=== PATIENT | male | born 1990 | race Caucasian/White ===

== ENCOUNTER 2019-04-20 03:30 | Emergency (ER) | payer BC ==
[2019-04-20] MEDS ORDERED: Dexamethasone 10 MG/ML SDV IM ONE (05:14)
--- NOTE | 2019-04-20 05:36 | EDM.PDOC ---
ED HPI GENERAL MEDICAL PROBLEM - General Chief Complaint: ENT Problem Stated Complaint: PER PT. UNDER HIS LT JAW IS HURTING Time Seen by Provider: 04/20/19 04:52 - History of Present Illness INITIAL COMMENTS - FREE TEXT/NARRATIVE: Pt with no reported pmh presents with swelling under his chin since 6pm 04/20. The nodular swelling first began on the left and moved to the right while at work. In the day prior to this, the pt reports mild sore throat, nasal congestion, and nonproductive cough. Pt denies dental pain, difficulty swallowing or breathing or any other symptoms. throat Pain Score (Numeric/FACES): 3 - Related Data Allergies Allergy/AdvReac Type Severity Reaction Status Date / Time acetaminophen Allergy Hives Verified 04/20/19 04:20 Home Meds: Home Meds Albuterol [Proventil HFA] 2 puff INH Q4H PRN 04/20/19 [History] Fluticasone/Vilanterol [Breo Ellipta 100-25 MCG Inhalation Kit] 1 puff INH DAILY 04/20/19 [History] Past Medical History Respiratory History: Reports: Asthma Endocrine/Metabolic History: Reports: Obesity/BMI 30+ - Past Surgical History Respiratory Surgical History: Reports: None Endocrine Surgical History: Reports: None Social & Family History - Family History Family Medical History: Noncontributory - Tobacco Use Smoking Status *Q: Never Smoker Second Hand Smoke Exposure: No - Caffeine Use Caffeine Use: Reports: Soda - Recreational Drug Use Recreational Drug Use: No ED ROS ENT - Review of Systems Review Of Systems: See Below Constitutional: Reports: No Symptoms HEENT: Reports: Rhinitis, Throat Pain. Denies: Throat Swelling Respiratory: Reports: Cough Cardiovascular: Reports: No Symptoms GI/Abdominal: Reports: No Symptoms Skin: Reports: No Symptoms Hematologic/Lymphatic: Reports: Swollen Glands ED EXAM, ENT - Physical Exam Exam: See Below General Appearance: Alert, WD/WN, No Apparent Distress Ears: Normal External Exam Nose: Normal Inspection Mouth/Throat: Normal Gums, Normal Teeth, Pharyngeal Erythema, Tonsillar Erythema. No: Drooling, Gum Swelling, Hoarse Voice, Lip Swelling, Tonsillar Exudates, Tonsillar Swelling, Trismus Head: Atraumatic, Normocephalic Neck: Lymphadenopathy (L), Lymphadenopathy (R), Other (Bilateral submandibular LAD. Nodes soft, nontender and mobile. No sublingual edema, air way and oropharynx normal) Respiratory/Chest: No Respiratory Distress, Lungs Clear, Normal Breath Sounds Cardiovascular: Regular Rate, Rhythm, No Murmur GI/Abdominal: Soft, Non-Tender, No Distention Extremities: Normal Inspection Neurological: Alert, Oriented, Normal Cognition Skin: Warm, Dry, Intact Course - Vital Signs Last Recorded V/S: Last Vital Signs Temp 96.4 F 04/20/19 04:08 Pulse 108 H 04/20/19 05:18 Resp 20 04/20/19 05:18 BP 166/105 H 04/20/19 05:18 Pulse Ox 96 04/20/19 05:18 - Orders/Labs/Meds Meds: Medications Discontinued Medications Generic Name Dose Route Start Last Admin Trade Name Symone PRN Reason Stop Dose Admin Dexamethasone 12 mg 04/20/19 05:14 04/20/19 05:42 Dexamethasone IM 04/20/19 05:15 12 mg ONETIME ONE Administration - Re-Assessments/Exams Free Text/Narrative Re-Assessment/Exam: Pt who is otherwise healthy with no PMH presents with one night of what appears to be bilateral submandibular lymphadenopathy. Pt reports preceding URI symptoms and initial unilateral left lymphadenopathy. VS clinically unremarkable and PE benign with nonproductive cough, oropharyngeal irritation and bilateral submandibular lymphadenopathy. Strep swab negative. Symptoms likely reactive due to viral URI. Decadron given for symptom control. Pt strongly advised to follow up with primary care for monitoring of this lymphadenopathy to rule out malignancy. Pt will follow up and is comfortable with discharge. Strict return precautions discussed should symptoms worsen or any concerns arise. Departure - Departure Time of Disposition: 05:55 Disposition: Home, Self-Care 01 Condition: Good Clinical Impression: Submandibular lymphadenopathy - Discharge Information *PRESCRIPTION DRUG MONITORING PROGRAM REVIEWED*: Not Applicable *COPY OF PRESCRIPTION DRUG MONITORING REPORT IN PATIENT BOZENA: Not Applicable Instructions: Lymphadenopathy Referrals: Tony Benedict MD [Primary Care Provider] - Forms: ED Department Discharge Sepsis Event Note - Evaluation Sepsis Screening Result: No Definite Risk - Focused Exam Date Exam was Performed: 04/21/19 Time Exam was Performed: 09:03
== END 2019-04-20 06:04 | disposition home or self-care (01) ==
LOC: MW.ED 03:30
DX: R59.0 Localized enlarged lymph nodes (principal); E66.9 Obesity, unspecified; J45.909 Unspecified asthma, uncomplicated; Z79.899 Other long term (current) drug therapy
CPT/HCPCS: 87081; 87880; 96372; 99283; J1100

== ENCOUNTER 2021-02-03 02:24 | Emergency (ER) | payer BC ==
--- NOTE | 2021-02-03 02:42 | EDM.PDOC ---
ED HPI GENERAL MEDICAL PROBLEM - General Chief Complaint: General Stated Complaint: MEDICAL CLEARANCE Time Seen by Provider: 02/03/21 02:40 - History of Present Illness INITIAL COMMENTS - FREE TEXT/NARRATIVE: CHIEF COMPLAINT(S): Medical Clearance HISTORY OF PRESENT ILLNESS: This is a 30-year-old man without any significant past medical history who comes to the emergency department with a chief complaint of Medical Clearance. The patient states that they have no symptoms and are here for medical clearance. The patient states that they are feeling well and they deny chest pain, shortness of breath, abdominal pain, nausea or vomiting. Headache, blurry vision, loss of vision, numbness, tingling, weakness. Use of anticoagulation. Head injury. REVIEW OF SYSTEMS: Constitutional: Denies fever, chills. Eyes: Denies eye pain Ears, Nose, Mouth, & Throat: Denies earache Cardiovascular: Denies chest pain Respiratory: Denies shortness of breath Gastrointestinal: Denies Nausea, vomiting, diarrhea, hematochezia. Genitourinary: Denies hematuria Skin:Denies a rash MSK: Denies joint pain Neurological: Denies blurred vision Psychiatric: Denies depression PAST MEDICAL HISTORY: As per history of present illness and as reviewed below otherwise noncontributory. SURGICAL HISTORY: As per history of present illness and as reviewed below otherwise noncontributory. SOCIAL HISTORY: As per history of present illness and as reviewed below otherwise noncontributory. FAMILY HISTORY: As per history of present illness and as reviewed below otherwise noncontributory. EXAMINATION OF ORGAN SYSTEMS/BODY AREAS: Constitutional: Blood pressure is 166/96, heart rate 116, respiratory rate 18 with an oxygen saturation of 97% on room air. Temperature 36.0 General: Well-appearing man who is in no acute distress Psychiatric: Appropriate mood and affect. Eyes: No scleral icterus or conjunctival erythema ENMT: Moist mucous membranes. No pharyngeal erythema Cardiovascular: Regular, rate, and rhythm. No gallops, murmurs, or rubs. Bilateral upper extremity pulses symmetric and intact. No peripheral edema. No JVD. Respiratory: Lungs clear to auscultation bilaterally. No wheezes, rales, or rhonchi. Gastrointestinal: Soft, non-tender, non-distended. Normoactive bowel sounds Genitourinary: No suprapubic tenderness Musculoskeletal: Normal range of motion. Skin: No lesions or abrasions. Neurological: Alert, GCS 15 MEDICAL DECISION MAKING AND COURSE IN THE ED WITH INTERPRETATION/REVIEW OF DIAGNOSTIC STUDIES: This is a 30-year-old man without any significant past medical history who comes to the emergency department for a medical clearance. The patient is currently asymptomatic without any complaints. At this time, I do not believe any further workup is indicated, therefore the patient was discharged in custody. The medical clearance form was completed and they were instructed to come to the ED for any new or concerning symptoms. The patient expressed understanding and was amenable to discharge at this time. DISPOSITION: The patient was discharged in police custody in stable condition. CONDITION: Good PROCEDURES: None FINAL IMPRESSION(S)/DIAGNOSES: 1. Acute encounter for medical screening examination Saman Ho M.D. - Related Data Allergies Allergy/AdvReac Type Severity Reaction Status Date / Time acetaminophen Allergy Hives Verified 02/03/21 02:43 Home Meds: Home Meds Albuterol [Proventil HFA] 2 puff INH Q4H PRN 04/20/19 [History] Fluticasone/Vilanterol [Breo Ellipta 100-25 MCG Inhalation Kit] 1 puff INH DAILY 04/20/19 [History] Past Medical History Respiratory History: Reports: Asthma Endocrine/Metabolic History: Reports: Obesity/BMI 30+ - Past Surgical History Respiratory Surgical History: Reports: None Endocrine Surgical History: Reports: None Social & Family History - Family History Family Medical History: No Pertinent Family History - Caffeine Use Caffeine Use: Reports: Soda ED ROS GENERAL - Review of Systems Review Of Systems: See Below ED EXAM, GENERAL - Physical Exam Exam: See Below Course - Vital Signs Last Recorded V/S: Last Vital Signs Temp 36 C L 02/03/21 02:44 Pulse 116 H 02/03/21 02:44 Resp 18 02/03/21 02:44 BP 166/96 H 02/03/21 02:44 Pulse Ox 97 02/03/21 02:44 Departure - Departure Time of Disposition: 02:41 Disposition: Home, Self-Care 01 Condition: Good Clinical Impression: Encounter for medical screening examination - Discharge Information *PRESCRIPTION DRUG MONITORING PROGRAM REVIEWED*: No *COPY OF PRESCRIPTION DRUG MONITORING REPORT IN PATIENT BOZENA: No Instructions: Medical Screening Exam Referrals: PCP,None [Primary Care Provider] - Forms: ED Department Discharge Additional Instructions: You were evaluated today on an emergent basis. At this time no further work-up is indicated. I recommend that she follow-up with primary care physician as needed. If you have any concerning symptoms please return to the emergency department. [facility] [address] [place] [address] [facility] [address] [place] [id number] The patient is informed of any results of their evaluation and diagnostic workup and all questions are answered. They are given discharge instructions and return precautions. The patient is stable for discharge. The patient states they understand and agree with the plan and that they will return if their symptoms get worse or if they have any new concerns. The following information is given to patients seen in the emergency department who are being discharged to home. This information is to outline your options for follow-up care. We provide all patients seen in our emergency department with a follow-up referral. The need for follow-up, as well as the timing and circumstances, are variable depending upon the specifics of your emergency department visit. If you don't have a primary care physician on staff, we will provide you with a referral. We always advise you to contact your personal physician following an emergency department visit to inform them of the circumstance of the visit and for follow-up with them and/or the need for any referrals to a consulting specialist. The emergency department will also refer you to a specialist when appropriate. This referral assures that you have the opportunity for follow-up care with a specialist. All of these measure are taken in an effort to provide you with optimal care, which includes your follow-up. Under all circumstances we always encourage you to contact your private physician who remains a resource for coordinating your care. When calling for follow-up care, please make the office aware that this follow-up is from your recent emergency room visit. If for any reason you are refused follow-up, please contact the Emergency Department at and asked to speak to the emergency department charge nurse.
== END 2021-02-03 02:57 | disposition home or self-care (01) ==
LOC: MW.ED 02:24
DX: Z13.89 Encounter for screening for other disorder (principal); J45.909 Unspecified asthma, uncomplicated; E66.9 Obesity, unspecified; Z88.6 Allergy status to analgesic agent
CPT/HCPCS: 99283

== ENCOUNTER 2021-07-16 15:00 | Inpatient (IN) | payer BC ==
[2021-07-16] MEDS ORDERED: Sodium Chloride 0.9% 2.5 ML Syringe FLUSH PRN (15:35)
[2021-07-16] MEDS ORDERED: Sodium Chloride 0.9% 1,000 ML IV ONE (15:35)
[2021-07-16] MEDS ORDERED: Sodium Chloride 0.9% 10 ML Syringe FLUSH PRN (15:35)
[2021-07-16] MEDS ORDERED: Iopamidol 755 MG/ML 500 ML Multipack Bottle IVPUSH ONE (16:50)
[2021-07-16 17:58] LABS: BLOOD UREA NITROGEN,BUN 15 mg/dL (7.0-18.0); CARBON DIOXIDE,CO2 30.8 mmol/L (21.0-32.0); CHLORIDE,CL 86 mmol/L (98-107); GLUCOSE RANDOM 102 mg/dL (74-106); POTASSIUM,K 2.8 mmol/L (3.5-5.1); SODIUM,NA 131 mmol/L (136-148)
[2021-07-16 17:59] LABS: ACETAMINOPHEN <2.0 ug/mL
[2021-07-16 18:02] LABS: CORONAVIRUS COVID-19 NAA NEGATIVE (NEGATIVE); INFLUENZA A NAA NEGATIVE (NEGATIVE); INFLUENZA B NAA NEGATIVE (NEGATIVE)
[2021-07-16] MEDS ORDERED: Potassium Chloride 10% 20 MEQ/15 ML Soln 30 ML UD Cup PO ONE (18:12)
[2021-07-16] MEDS ORDERED: NS with KCl 40mEq 1,000 ML IV SCH (18:15)
[2021-07-16] MEDS ORDERED: Ondansetron 4 MG/2 ML SDV IVPUSH PRN (20:36)
[2021-07-16] MEDS ORDERED: Albuterol/Ipratropium 3.0-0.5 MG/3 ML Neb Soln NEB PRN (20:36)
[2021-07-16] MEDS ORDERED: Heparin Sodium 5,000 Units/ML Vial SUBCUT SCH (20:45)
[2021-07-16] MEDS: Fluticasone/Salmeterol 250-50 MCG Inhalation Powder 14/Diskus INH SCH (21:26)
[2021-07-16] MEDS: Pantoprazole 40 MG in Sodium Chloride 0.9% 10 ML IVPUSH SCH (21:30)
[2021-07-16] MEDS: Albuterol 8 GM Inhaler INH PRN (21:40)
[2021-07-16] MEDS ORDERED: Benzonatate 100 MG Cap PO PRN (21:52)
[2021-07-16] MEDS ORDERED: Calcium Carbonate 500 MG Tab.Chew PO PRN ×2 (21:53→21:55)
[2021-07-17] MEDS: Lactated Ringers 1,000 ML IV SCH ×3 (00:20→16:08)
[2021-07-17] MEDS ORDERED: Sodium Chloride 0.65% Nasal Spray 45 ML Bottle NAS PRN (02:54)
[2021-07-17] MEDS: Albuterol 8 GM Inhaler INH PRN ×2 (06:02→20:15)
[2021-07-17 06:44] LABS: BLOOD UREA NITROGEN,BUN 14 mg/dL (7.0-18.0); CARBON DIOXIDE,CO2 30.5 mmol/L (21.0-32.0); CHLORIDE,CL 92 mmol/L (98-107); GLUCOSE RANDOM 94 mg/dL (74-106); POTASSIUM,K 3.6 mmol/L (3.5-5.1); SODIUM,NA 133 mmol/L (136-148)
[2021-07-17] MEDS: Fluticasone/Salmeterol 250-50 MCG Inhalation Powder 14/Diskus INH SCH ×2 (09:27→20:15)
[2021-07-17] MEDS: Pantoprazole 40 MG in Sodium Chloride 0.9% 10 ML IVPUSH SCH (09:28)
[2021-07-17] MEDS ORDERED: Magnesium Sulfate/Water 2 GM in Premix Bag 1 BAG IV ONE (12:45)
[2021-07-18] MEDS: Lactated Ringers 1,000 ML IV SCH ×3 (00:10→19:53)
[2021-07-18 06:56] LABS: BLOOD UREA NITROGEN,BUN 16 mg/dL (7.0-18.0); CHLORIDE,CL 92 mmol/L (98-107); GLUCOSE RANDOM 101 mg/dL (74-106); LIPASE 983 U/L (73-393); POTASSIUM,K 3.6 mmol/L (3.5-5.1); SODIUM,NA 132 mmol/L (136-148)
[2021-07-18] MEDS: Fluticasone/Salmeterol 250-50 MCG Inhalation Powder 14/Diskus INH SCH ×2 (08:27→20:03)
[2021-07-18] MEDS: Pantoprazole 40 MG in Sodium Chloride 0.9% 10 ML IVPUSH SCH (08:28)
[2021-07-18] MEDS ORDERED: Phosphorus #1 250 MG Tab PO ONE (14:45)
[2021-07-18] MEDS ORDERED: Magnesium Sulfate/Water 2 GM in Premix Bag 1 BAG IV ONE (14:45)
[2021-07-19] MEDS: Lactated Ringers 1,000 ML IV SCH ×2 (04:44→16:52)
[2021-07-19 07:28] LABS: BLOOD UREA NITROGEN,BUN 9 mg/dL (7.0-18.0); CARBON DIOXIDE,CO2 27.8 mmol/L (21.0-32.0); CHLORIDE,CL 93 mmol/L (98-107); GLUCOSE RANDOM 89 mg/dL (74-106); POTASSIUM,K 3.3 mmol/L (3.5-5.1); SODIUM,NA 131 mmol/L (136-148)
[2021-07-19] MEDS ORDERED: Potassium Chloride 20 MEQ Tab.ER PO ONE (08:45)
[2021-07-19] MEDS ORDERED: Magnesium Sulfate/Water 2 GM in Premix Bag 1 BAG IV ONE (08:45)
[2021-07-19] MEDS: Pantoprazole 40 MG in Sodium Chloride 0.9% 10 ML IVPUSH SCH (09:26)
[2021-07-19] MEDS: Fluticasone/Salmeterol 250-50 MCG Inhalation Powder 14/Diskus INH SCH ×2 (09:26→21:22)
[2021-07-19] MEDS ORDERED: Gadobenate Dimeglumine 529 MG/ML 20 ML SDV IVPUSH STA (12:09)
[2021-07-19] MEDS: prednisoLONE Soln 15 MG/5 ML UD Cup PO SCH (14:53)
[2021-07-19] MEDS ORDERED: Phytonadione 1 MG/0.5 ML Syringe SUBCUT ONE (15:14)
[2021-07-19] MEDS: Heparin Sodium 5,000 Units/ML Vial SUBCUT SCH (16:01)
[2021-07-20] MEDS: Lactated Ringers 1,000 ML IV SCH ×3 (01:35→22:41)
[2021-07-20] MEDS: Albuterol 8 GM Inhaler INH PRN (01:38)
[2021-07-20 07:28] LABS: BLOOD UREA NITROGEN,BUN 10 mg/dL (7.0-18.0); CARBON DIOXIDE,CO2 27.8 mmol/L (21.0-32.0); CHLORIDE,CL 94 mmol/L (98-107); GLUCOSE RANDOM 112 mg/dL (74-106); POTASSIUM,K 3.7 mmol/L (3.5-5.1); SODIUM,NA 132 mmol/L (136-148)
[2021-07-20] MEDS: prednisoLONE Soln 15 MG/5 ML UD Cup PO SCH (08:36)
[2021-07-20] MEDS: Pantoprazole 40 MG in Sodium Chloride 0.9% 10 ML IVPUSH SCH (08:37)
[2021-07-20] MEDS: Heparin Sodium 5,000 Units/ML Vial SUBCUT SCH ×2 (08:45)
[2021-07-20] MEDS: Fluticasone/Salmeterol 250-50 MCG Inhalation Powder 14/Diskus INH SCH ×2 (08:47→20:41)
[2021-07-20] MEDS ORDERED: Magnesium Sulfate/Water 4 GM in Premix Bag 1 BAG IV ONE (09:45)
[2021-07-20] MEDS ORDERED: Phosphorus #1 250 MG Tab PO ONE (09:45)
[2021-07-20] MEDS ORDERED: prednisoLONE Soln 15 MG/5 ML UD Cup PO SCH (12:00)
[2021-07-20] MEDS ORDERED: Lactulose Soln 10 GM/15 ML 15 ML UD Cup PO ONE (12:56)
[2021-07-21] MEDS ORDERED: prednisoLONE Soln 15 MG/5 ML UD Cup PO SCH ×2 (01:17→01:30)
[2021-07-21] MEDS: Lactated Ringers 1,000 ML IV SCH ×2 (06:42→15:30)
[2021-07-21 07:05] LABS: BLOOD UREA NITROGEN,BUN 10 mg/dL (7.0-18.0); CARBON DIOXIDE,CO2 27.6 mmol/L (21.0-32.0); CHLORIDE,CL 97 mmol/L (98-107); GLUCOSE RANDOM 112 mg/dL (74-106); POTASSIUM,K 3.3 mmol/L (3.5-5.1); SODIUM,NA 135 mmol/L (136-148)
[2021-07-21] MEDS: Fluticasone/Salmeterol 250-50 MCG Inhalation Powder 14/Diskus INH SCH ×2 (08:53→21:45)
[2021-07-21] MEDS: prednisoLONE Soln 15 MG/5 ML UD Cup PO SCH (08:53)
[2021-07-21] MEDS: Pantoprazole 40 MG in Sodium Chloride 0.9% 10 ML IVPUSH SCH (09:07)
[2021-07-21] MEDS ORDERED: Potassium Chloride 10% 20 MEQ/15 ML Soln 30 ML UD Cup PO ONE (16:13)
[2021-07-21] MEDS ORDERED: Magnesium Sulfate/Water 4 GM in Premix Bag 1 BAG IV ONE (16:14)
[2021-07-21] MEDS ORDERED: Phosphorus #1 250 MG Tab PO ONE (16:14)
[2021-07-22] MEDS: Lactated Ringers 1,000 ML IV SCH ×2 (04:13→12:17)
[2021-07-22 07:28] LABS: BLOOD UREA NITROGEN,BUN 10 mg/dL (7.0-18.0); CHLORIDE,CL 98 mmol/L (98-107); GLUCOSE RANDOM 96 mg/dL (74-106); POTASSIUM,K 3.3 mmol/L (3.5-5.1); SODIUM,NA 135 mmol/L (136-148)
[2021-07-22] MEDS: prednisoLONE Soln 15 MG/5 ML UD Cup PO SCH (09:01)
[2021-07-22] MEDS: Pantoprazole 40 MG in Sodium Chloride 0.9% 10 ML IVPUSH SCH (09:01)
[2021-07-22] MEDS: Fluticasone/Salmeterol 250-50 MCG Inhalation Powder 14/Diskus INH SCH (09:03)
[2021-07-22] MEDS ORDERED: Heparin Sodium 5,000 Units/ML Vial SUBCUT SCH (10:15)
== END 2021-07-22 15:30 | disposition home or self-care (01) | DRG 280 ==
LOC: MW.ED 15:00 → OBSVTOIN 18:14 → MW.MS 18:14
PROVIDERS: ADMIT Student in an Organized Health Care Education/Training Program; ATTEND Student in an Organized Health Care Education/Training Program
DX: K70.10 Alcoholic hepatitis without ascites (principal); Z68.43 Body mass index [BMI] 50.0-59.9, adult; K76.0 Fatty (change of) liver, not elsewhere classified; E80.6 Other disorders of bilirubin metabolism; E83.42 Hypomagnesemia; E66.9 Obesity, unspecified; J45.909 Unspecified asthma, uncomplicated; E87.6 Hypokalemia; Z20.822 Contact with and (suspected) exposure to COVID-19; Z79.52 Long term (current) use of systemic steroids; Z79.899 Other long term (current) drug therapy
CPT/HCPCS: 0240U; 36415; 72197; 72197-26; 74177; 74177-26; 74183; 74183-26; 76705; 76705-26; 80053; 80074; 80143; 81001; 82140; 82247; 82248; 82977; 83690; 83735; 84100; 85025; 85610; 85730; 96365; 96366; 96372; 96375; 96376; 99284; 99285-25; A9270-GY; A9577; C9113; G0378; J1644; J2405; J3430; J3475; J3480; J3490; J7030; J7120; Q9967